=== PATIENT | female | born 1960 | race Caucasian/White ===

== ENCOUNTER 2023-12-20 17:00 | Inpatient (IN) | payer OTHER, SELFPAY ==
[2023-12-20] VITALS (9 sets, daily range): BP systolic 123–155; BP diastolic 46–83; BMI 17.8
[2023-12-20] MEDS: CORDARONE 518 MG IV (12:10)
[2023-12-20] MEDS: NSS 141 ML IV (12:51)
--- NOTE | 2023-12-20 13:35 | PTCARENOTE ---
Dr Loa, hospitalist, at pt bedside speaking to pt.
--- NOTE | 2023-12-20 14:09 | W.PN.CARDCBS ---
Today's Communication / Plan
-
LHC
anticipate ICD today or tomorrow AM
Impression / Plan
-
This is the Cardiology Consult update note.
Consult scanned into chart.
PCP: Jazmin Chan NP
CDY: Michael Cheney MD
63 y/o, chronic systolic HFrEF 25-30%, NICM likely attributed to chemotherapy for breast cancer, prolonged Q-T interval on EKG, HLD, COPD/emphysema, former tobacco abuse. Recently seen by cardiology and plan was for a diagnostic R/LHC for persistent
low EF. Bi-V ICD was discussed, but she preferred to wait at this time.
New onset dizziness, chest discomfort, sob at home. Laid on the floor and called EMS, found to be in VT w/rates 280, SBP 40s. Converted to SR after 150mg amiodarone x2 doses. Admitted to ICU on amiodarone gtt, mild transaminitis, remained in NSR
w/1st deg AVB. Repeat echo done this morning - preliminary results with LVEF 25%, moderate MR.
Transferred today for [facility] with likely ICD implant this admission.
Echo in 08/2023- severely reduced EF 25-30%, basal/mid inferoseptal AK, entire lateral, apex and inferior tariq are HK, mild MR
IMPRESSION:
VTach
Chronic systolic HFrEF, 25%
NICM r/t chemotherapy
Prolonged Q-T interval on EKG
HLD
Breast Cancer (lumpectomy, XRT/Chemo, 1990)
Hx Bilat mastectomy, bilat oopherectomy
COPD/Emphysema
Former Tobacco abuse
PLAN:
Pt with known cardiomyopathy and low EF on GDMT, refusing Bi-V ICD at last o/v on 12/16/23
Now with VTach, converted with amiodarone load and gtt
EF remains low on recent echo, 25%
LHC today to eval for CAD
If no CAD, plan for ICD +/- Bi-V later today or tomorrow
Continue IV amio for now and transition to PO after device implanted
Monitor electrolytes- both Potassium and Magnesium repleted today
LFTs in AM- AST 264, ALT 151, AP147 on arrival- hold atorvastatin 40/d for now
Continue metoprolol xl 25/d, entresto 24/ BID, aldactone 12.5/d
Continue spiriva, albuterol MN as needed for COPD
Followup for incision check at [facility] and with Dr. Cheney thereafter
Progress Note - Hosted Services Analyst
Subjective
Date of Service: December 20, 2023
Denies cp/palps/dizziness/dyspnea
on bedrest
Objective
Vital Signs and I&O:
Vital Signs
Temp Pulse Resp BP Pulse Ox
98.9 F 68 20 141/83 92
12/20/23 12:10 12/20/23 12:10 12/20/23 12:10 12/20/23 12:10 12/20/23 12:10
Vital Signs
Temp Pulse Resp BP Pulse Ox
98.9 F 68 20 141/83 92
12/20/23 12:10 12/20/23 12:10 12/20/23 12:10 12/20/23 12:10 12/20/23 12:10
Physical Exam
Physical Exam
AAOx3, MAEE 5/5
RRR S1 S2 no murmurs
CTA bilat, non labored
soft abd, + bs
bilat extremities w/palpable distal pulses, no edema
--- NOTE | 2023-12-20 14:49 | HPS.HSE ---
Family Physician
-
Family Physician: Jazmin Chan
Chief Complaint
-
Sustained symptomatic VT.
History of Present Illness
Patient is a 63 years old female with fairly recent diagnosis of nonischemic cardiomyopathy with severely reduced ejection fraction who was admitted to outside hospital with symptomatic ventricular tachycardia on December 19, 2023. At that time she
presented to the emergency department for evaluation of lightheadedness, chest discomfort and associated shortness of breath. She was not her normal state of health the day prior. She felt lightheaded to the point that she had to lower herself
down to the ground. She called EMS.
She noted to be in ventricular tachycardia en route to ED. She was started on amiodarone and spontaneously converted to sinus rhythm shortly after arrival to emergency room. She remained hemodynamically stable while in the emergency room. She was
continued on amiodarone drip and transferred to [facility] for further evaluation including diagnostic cath and AICD implantation.
Medical History
Past Medical History
Past Medical History: Reports Cancer (Precipitated with radiation and chemotherapy 30 years ago.) and COPD; Denies IDDM
Past Surgical History: Reports Other (Bilateral mastectomy with implants)
Social History
Tobacco: Former Smoker
Alcohol: None
Drug: None
Living: With Family
Family History
Family History: Not pertinent
Allergies / Home Medications
Allergies reflects when Allergies were last updated in [facility].
Home Medications with original date entered in [facility]
Allergy/Medication List:
Allergies
Allergy/AdvReac Type Severity Reaction Status Date / Time
levofloxacin Allergy nausea and Verified 12/20/23 12:12
vomiting
Home Medications
acetaminophen 500 mg tablet 1,000 mg PO Q6H PRN pain 12/20/23
albuterol sulfate 2.5 mg/3 mL (0.083 %) solution for nebulization 2.5 mg inhalation BIDPRN PRN sleeep 12/20/23
albuterol sulfate 90 mcg/actuation aerosol inhaler 2 puff inhalation DAILYPRN PRN SOB 12/20/23
alendronate 70 mg tablet (Fosamax) 70 mg PO QWEEK 12/20/23
aspirin 81 mg tablet,delayed release 81 mg PO DAILY 12/20/23
atorvastatin 40 mg tablet 40 mg PO QPM 12/20/23
biotin 5 mg capsule 5 mg PO DAILY 12/20/23
metoprolol succinate 25 mg tablet,extended release 24 hr 25 mg PO DAILY 12/20/23
sacubitril 24 mg-valsartan 26 mg tablet (Entresto) 1 tab PO BID 12/20/23
spironolactone 25 mg tablet 12.5 mg PO DAILY 12/20/23
tiotropium bromide 2.5 mcg/actuation mist for inhalation (Spiriva Respimat) 1 puff inhalation BIDPRN PRN SOB 12/20/23
Review of Systems
-
A 12 point ROS was completed and negative except as noted: Yes
Cardiac: Reports See HPI
Physical Exam
Vital Signs
Vital Signs
Temp Pulse Resp BP Pulse Ox
98.9 F 68 20 141/83 92
12/20/23 12:10 12/20/23 12:10 12/20/23 12:10 12/20/23 12:10 12/20/23 12:10
Physical Exam
General: Well Developed, Well Nourished and No Apparent Distress
HEENT: NormoCephalic, Moist mucous membranes and Atraumatic
Respiratory: Clear
Cardiac: S1/S2 and Regular Rhythm; No Murmur or Rub
GI: Soft, Non Tender, Non Distended and Normal Bowel Sounds; No Organomegaly
Rectal: Deferred by Provider
Musculoskeletal: No Clubbing, No Cyanosis and No Edema
Skin: No Rash
Neuro: Awake, Alert, Oriented, AO x 3 and Nonfocal/grossly intact
Psych: Calm
Data Reviewed
-
Old Records: Reviewed (Medical records from transferring facility)
Impression/Plan
-
IMPRESSION:
Sustained ventricular tachycardia, symptomatic upon admission
Nonischemic cardiomyopathy.
Abnormal LFTs suspected secondary to shock liver in the settings of ventricular tachycardia
Conditions prior to admission:
Nonischemic cardiomyopathy diagnosed March 2023.
COPD without exacerbation
Former tobacco smoker.
History of breast carcinoma status postchemotherapy/radiation 30 years ago.
Status post bilateral mastectomy with implants (BRCA gene positive)
PLAN:
Sustained symptomatic ventricular tachycardia.
Currently in sinus rhythm.
On amiodarone drip upon transfer.
Plan is for diagnostic catheterization to rule out ischemic component and AICD implantation.
Nonischemic cardiomyopathy.
Reported negative stress test April 2023.
Cardiac cath as noted above.
On GDMT with beta-cynthia, Entresto, spironolactone PARENT EDUCATOR.
Abnormal LFTs suspected secondary to shock liver with VTE reported from outside facility.
Follow CMP.
COPD without exacerbation.
Stable respiratory status with no evidence of bronchospasm.
Continue DuoNebs and Spiriva
Full code
DVT prophylaxis heparin sc
--- NOTE | 2023-12-20 15:20 | ITS.CL.CATH ---
Addendum entered and electronically signed by Josseline Acosta MD 12/29/23 17:38:
CORRECT DATE OF PROCEDURE: 12/20/2023
Original Note:
Consumer Loan Manager - Catheterization
Cardiac Catheterization
Procedure Report:
RIGHT AND LEFT HEART CATHETERIZATION
Date of Procedure: December 19, 2023
Procedures performed:
1: Coronary angiography
2: Left ventricular hemodynamic assessment
3: Right heart catheterization
Primary Care Physician: SYLVIA Morgan
Primary Accounting Professional: Dr. Michael Cheney
INDICATION: The patient is a 63-year-old woman with a past medical history of smoking and COPD and cardiomyopathy who presents with sustained ventricular tachycardia. She is referred for diagnostic right and left heart catheterization.
ACCESS: The patient was prepped and draped in usual sterile fashion. A 5 Liberian sheath was placed in the right radial artery using the Seldinger over the wire technique. A 6 Liberian sheath was then placed in the right common femoral vein using the
same technique.
HEMODYNAMIC FINDINGS (mmHg):
RA(a,v,m): 5, 3, 3
RV(s/d,EDP): 30/2, 3
PA(s/d/m): 32/11, 20
PCWP(a,v,m): 7, 9, 7
LV(s/d,EDP): 110/7, 12
Ao(s/d,m): 110/55, 76
Oxygen Saturations (mg/dl):
PA: 72% on 2 L oxygen by nasal cannula
LV: 95% on 2 L of oxygen by nasal cannula on room air
Cardiac Output/Index (l/min / l/min/m2):
Estimated Malachi Method: 3.8 / 2.6
VALVE HEMODYNAMICS:
No significant aortic or mitral valve stenosis.
ANGIOGRAPHIC FINDINGS:
Single-plane Left Ventriculography in CAMPBELL Projection: Not done.
Coronary Angiography:
Dominance: Right
Left Main: Normal
Left Anterior Descending: The left anterior descending artery is a medium caliber vessel that gives rise to a small high first diagonal branch and a medium caliber second diagonal branch. These vessels are widely patent with mild luminal
irregularities. The LAD itself is a medium caliber vessel that has diffuse 20 to 30% mid disease. The apical vessel wraps around to feed a significant portion of the distal inferior wall. All vessels have normal flow.
Left Circumflex: The left circumflex is a medium caliber nondominant vessel that gives rise to 2 major obtuse marginal branches. These vessels are widely patent with normal flow and no focal disease.
Right Coronary: The right coronary artery is a medium caliber dominant vessel that has moderate diffuse calcification throughout the AV groove. There is smooth 20% disease at multiple levels in the mid RCA with normal distal flow and a relatively
small caliber posterior descending artery and 2 larger posterior left ventricular branches.
Fluoroscopy Time (min): 3.1
Radiation Dose (mGy): 97
DAP (Gy.cm2): 9.3
Closure device: None. A TR band was applied for hemostasis at the right wrist. The femoral vein groin sheath will be pulled with manual pressure for hemostasis.
Complications: None.
ASSESSMENT:
1: Nonobstructive coronary artery disease. This is a nonischemic cardiomyopathy.
2: Normal left ventricular filling pressures with normal pulmonary pressures.
CONCLUSIONS and RECOMMENDATIONS:
1: Medical therapy for a nonischemic cardiomyopathy.
2: EP evaluation for likely ICD placement given presentation with ventricular tachycardia.
Josseline Acosta M.D.
Copy to: SYLVIA Morgan
--- NOTE | 2023-12-20 17:13 | ITS.CL.ICD ---
[employer] Wiring Technician - ICD
Implantable Cardioverter Defibrillator
Procedure Report:
ICD IMPLANTATION REPORT
Date of Procedure: December 20, 2023
Primary Care Physician: SYLVIA Morgan
Primary Innersole Maker: Dr. Michael Cheney
PROCEDURES:
ICD Implant
INDICATION FOR PROCEDURE:
Sustained ventricular tachycardia, hemodynamically unstable, requiring IV amiodarone for termination. Known history of heart failure with reduced ejection fraction. She underwent coronary angiography today which demonstrated no significant
obstructive coronary artery disease. Right heart catheterization demonstrated normal to slightly low left ventricular filling pressures and normal pulmonary artery pressures.
There is no reversible cause for the sustained ventricular tachycardia.
Life expectancy > 1 year.
Shared decision making involving the patient and her referring piece dyeing machine tender is utilized and decided to move forward with ICD implantation.
ICD implantation as a secondary prevention device is indicated.
QRS duration is not markedly prolonged and there is no indication for cardiac resynchronization pacing.
Lidocaine with epi was used for local anesthesia. Central venous access was obtained via axillary venipuncture. An incision was made along the left chest and a pre-pectoral pocket was formed. Using a Seldinger technique and peel-away sheaths, the
pacing leads were placed under fluoroscopic guidance.
Once testing (see below) showed adequate and stable function, the leads were secured using the suture sleeves. The pocket was liberally irrigated with antibiotic solution. The leads were connected to the generator header and the leads and
generator were placed within the pocket. Fluoroscopy confirmed stable lead position. The pocket was closed in the typical fashion.
FLUOROSCOPY:
Fluoroscopy was used to guide lead placement.
IMPLANTS:
ICD Rock CDD RA 500Q, serial #[id number], Left Pectoral
RA Rock , 2088 TC, serial number [id number]
RV Rock LDA 210Q serial number [id number], RV apical septum
DEVICE TESTING:
Sensing: RA 1.8 mV, RV 11.7 mV
Capture: RA 0.75 V@0.5ms, RV 0.75 V@0.5ms
Ohms: RA 560 , RV 500
Induction: Shock on T
FINAL PROGRAMMING:
Chris Pacing: DDD 60 - 130 ppm
Tachy parameters:
VF: 181 bpm, ATP X 1, Shock
VT-2: 160 bpm, ATP X 2, Shock
VT1: 140 bpm, Monitor
COMPLICATIONS:
None
CONCLUSIONS:
Successful implant of dual chamber ICD system.
Normal function of ICD and leads at implant testing.
RECOMMENDATIONS:
Post op care (tele, CXR, IV abx).
Initiate oral amiodarone load and discontinue IV amiodarone
In-Office wound check in 5-7 days.
Copy to:
SYLVIA Morgan
Dr. Michael Cheney
[2023-12-20] MEDS: PACERONE 400 MG PO ×2 (18:23→23:50)
[2023-12-20] MEDS: NSS 1000 IV (18:24)
--- NOTE | 2023-12-20 19:08 | PTCARENOTE ---
Received patient from EP lab at 1715 after right and left heart cath and ICD implant left upper chest. SR on the monitor with a BBB. Pressure dressing dry and intact left upper chest. Radial band in place right wrist with a strong radial pulse and
no signs of hematoma or bleeding. Dressing right groin is dry and intact. IV amiodarone infusing via left midline and was discontinued as ordered, patient given ordered PO dose. Post EKG done, patient's sister in visiting at the bedside, call miguel
within reach.
[2023-12-20] MEDS: TYLENOL 650 MG PO (19:16)
[2023-12-20] MEDS: ENTRESTO 24 MG/26 MG 1 TAB PO (19:16)
[2023-12-20] MEDS: ANCEF 5 IV (22:55)
--- NOTE | 2023-12-21 01:44 | PTCARENOTE ---
Assumed care of patient at change of shift. Patient AAOx3, sating 96-97% on 2L, and SR w/ BBB on tele. HR in the 60-70's at rest, BPs stable. TR removed at approximately 20:30, dry dressing applied. Patient ecchymotic above radial site, soft upon
palpation. Left anterior chest dressing intact, pressure dressing present. Left arm remains in immobilizer. Patient aware of activity restrictions in regards to right radial site/ LUE. Right groin dressing C/D/I. At approx 20:00 patient c/o chest
'heaviness'/ 'tightness' located midsternal. VSS, CXR obtained. Dr. Cavlert made aware. EKG obtained, findings similar to prior EKG. Symptoms resolved. No new orders obtained from MD. Patient requires standby assist, denies dizziness w/ ambulation.
Patient aware of POC, call miguel in reach.
[2023-12-21 03:18] VITALS: BP 131/70
[2023-12-21] MEDS: TYLENOL 650 MG PO ×2 (03:19→21:14)
[2023-12-21 04:01] LABS: % Basophils 0.6 % (0-2); % Immature Granulocytes 0.3 % (0-0.5); % Lymphocytes 14.4 % (20.5-51.1); % Monocytes 6.2 % (1.7-9.3); % Neutrophils 76.5 % (42.2-75.2); Absolute Eosinophils 0.1 10^3/uL (0-0.7); Absolute Monocytes 0.4 10^3/uL (0.1-0.6); Absolute Neutrophils 5.3 10^3/uL (1.4-6.5); Hematocrit 33.8 % (37.0-47.0); Hemoglobin 11.5 g/dL (12.0-16.0); Mean Corpuscular Hgb 30.7 pg (27.0-31.0); Mean Corpuscular Volume 90.1 fL (81.0-99.0); Mean Platelet Volume 9.7 fL (7.4-10.4); Nucleated Red Blood Cells % 0 %; Platelet Count 154 10^3/uL (130-400); Red Blood Cell Count 3.75 10^6/uL (4.20-5.40); Red Cell Dist. Width 12.9 % (11.5-14.5); White Blood Cell Count 6.9 10^3/uL (4.8-10.8)
[2023-12-21 04:20] LABS: ALT (SGPT) 244 U/L (0-35); AST (SGOT) 256 U/L (14-36); Albumin 3.2 g/dl (3.5-5.0); Alkaline Phosphatase 167 U/L (38-126); Blood Urea Nitrogen 7 mg/dl (7-17); Calcium 7.7 mg/dl (8.4-10.2); Carbon Dioxide 22 mmol/L (22-30); Chloride 107 mmol/L (98-107); Estimated Creatinine Clearance 70 ml/min; Glucose 119 mg/dl (70-99); Magnesium 2.3 mg/dl (1.6-2.3); Potassium 4.5 mmol/L (3.5-5.1); Sodium 132 mmol/L (135-145); Total Bilirubin 1.2 mg/dl (0.2-1.3); Total Protein 5.5 g/dl (6.3-8.2); eGFR > 60.00
[2023-12-21] MEDS: ANCEF 5 IV (05:51)
[2023-12-21 06:00] VITALS: BMI 19.0
[2023-12-21 07:12] VITALS: BP 136/76
--- NOTE | 2023-12-21 10:17 | W.PN.CARDCBS ---
Today's Communication / Plan
-
Cont amiodarone 200 mg BID for now and recheck LFTs in AM, if better cont amio, but if worse stop amio
Add Farxiga 10 mg daily and ask CM for help with checking cost
Impression / Plan
-
PCP: Jazmin Chan NP
CDY: Michael Cheney MD
IMPRESSION:
Transfer from [facility] to for cath and ICD 12/20/23
Sustained self-terminating VT
Nonobstructive CAD by cath 12/20/23
s/p [employer] DC ICD 12/20/23
Chronic systolic HFrEF, 25%
NICM r/t chemotherapy
Prolonged Q-T interval on EKG
HLD
Breast Cancer (lumpectomy, XRT/Chemo, 1990)
Hx Bilat mastectomy, B/L oophorectomy
COPD/Emphysema
Former Tobacco abuse
Elevated LFTs
Echo 08/2023: severely reduced EF 25-30%, basal/mid inferoseptal AK, entire lateral, apex and inferior tariq are hypokinetic, mild MR
PLAN:
-Patient was transferred form [facility] to 12/20/23 for cardiac cath after being admitted to [facility] with sustained VT and chest pain/SOB. Patient had cath as noted above.
-Patient is s/p [employer] DC ICD 12/20/23 as well. Device checked by rep 12/21/23 and normal function.
-AST 264 and ALT 151 at [facility] 12/20/23 and at on 12/21/23 AST 256 and ALT 244. Initially loaded with amiodarone gtt at [facility] and upon transfer to she was started on amiodarone 400 mg TID. Will decrease amiodarone to 200 mg BID starting 12/21/23 and
recheck LFTs on 12/22/23. If LFTs trending up on 12/22/23 then stop amiodarone, but if LFTs stable then continue amiodarone
-GDMT includes Toprol XL 25 mg daily, Entresto 24/26 mg BID and Aldactone 12.5 mg daily. Will try adding Farxiga 10 mg daily and ask CM to check cost.
HPI: 63 y/o, chronic systolic HFrEF 25-30%, NICM likely attributed to chemotherapy for breast cancer, prolonged Q-T interval on EKG, HLD, COPD/emphysema, former tobacco abuse. Recently seen by cardiology and plan was for a diagnostic R/LHC for
persistent low EF. Bi-V ICD was discussed, but she preferred to wait at this time.
New onset dizziness, chest discomfort, sob at home. Laid on the floor and called EMS, found to be in VT w/rates 280, SBP 40s. Converted to SR after 150mg amiodarone x2 doses. Admitted to ICU on amiodarone gtt, mild transaminitis, remained in NSR
w/1st deg AVB. Repeat echo done this morning - preliminary results with LVEF 25%, moderate MR.
Transferred today for [facility] with likely ICD implant this admission.
Progress Note - Wheel Press Clerk
Subjective
Date of Service: December 21, 2023
Overall feeling well
Objective
Labs:
12/21/23 03:37
12/21/23 03:37
Labs
Hgb 11.5 g/dL (12.0-16.0) L 12/21/23 03:37
Hct 33.8 % (37.0-47.0) L 12/21/23 03:37
Plt Count 154 10^3/uL (130-400) 12/21/23 03:37
Sodium 132 mmol/L (135-145) L 12/21/23 03:37
Potassium 4.5 mmol/L (3.5-5.1) 12/21/23 03:37
BUN 7 mg/dl (7-17) 12/21/23 03:37
Creatinine 0.5 mg/dL (0.6-1.0) L 12/21/23 03:37
Glucose 119 mg/dl (70-99) H 12/21/23 03:37
Vital Signs and I&O:
Vital Signs
Temp Pulse Resp BP Pulse Ox
98.2 F 75 16 136/76 97
12/21/23 07:11 12/21/23 07:12 12/21/23 07:11 12/21/23 07:12 12/21/23 07:12
Vital Signs
Temp Pulse Resp BP Pulse Ox
98.2 F 75 16 136/76 97
12/21/23 07:11 12/21/23 07:12 12/21/23 07:11 12/21/23 07:12 12/21/23 07:12
Intake & Output
12/19/23 12/20/23 12/21/23 12/22/23
06:59 06:59 06:59 06:59
Intake Total 453 / 453
Balance 453 / 453
Physical Exam
Physical Exam
GEN: NAD, AAOx3
HEENT: EOMI, MMM
LUNGS: CTA B/L
CV: Reg
ABD: soft, BS+
EXT: No edema B/L
NEURO: Gross non-focal
SKIN: No rash
[2023-12-21] MEDS: ENTRESTO 24 MG/26 MG 1 TAB PO ×2 (10:27→21:13)
[2023-12-21] MEDS: ASPIR LOW (ENTERIC COATED) 81 MG PO (10:27)
[2023-12-21] MEDS: TOPROL XL 25 MG PO (10:27)
[2023-12-21] MEDS: TYLENOL PO (10:27)
[2023-12-21] MEDS: ALDACTONE 12.5 MG PO (10:28)
[2023-12-21] MEDS: PACERONE 400 MG PO ×3 (10:28→21:13)
--- NOTE | 2023-12-21 11:10 | CM ---
Chart reviewed. Patient is independent of ADLS, lives with her mother and grandson in a 2 STH, 1 UDAY, 0 DME. Patient currently with no discharge needs. CM to follow
[2023-12-21 11:28] VITALS: BP 150/93
--- NOTE | 2023-12-21 15:11 | CM ---
Pricing on Farxiga through patient's [facility] is $0 copay.
--- NOTE | 2023-12-21 15:38 | W.PN.HOSP.TC ---
Today's Communication/Plan
-
Amiodarone
Follow LFT.
PT evaluation
Assessment / Plan
Assessment / Plan
IMPRESSION:
Sustained ventricular tachycardia, symptomatic upon admission
Nonischemic cardiomyopathy.
Abnormal LFTs suspected secondary to shock liver in the settings of ventricular tachycardia
Conditions prior to admission:
Nonischemic cardiomyopathy diagnosed March 2023.
COPD without exacerbation
Former tobacco smoker.
History of breast carcinoma status postchemotherapy/radiation 30 years ago.
Status post bilateral mastectomy with implants (BRCA gene positive)
PLAN:
Sustained symptomatic ventricular tachycardia.
Currently in sinus rhythm.
On amiodarone drip upon transfer.
[facility] on 12/20 with nonobstructive CAD confirms nonischemic cardiomyopathy.
Status post AICD placement on 12/20.
Transition to oral amiodarone with dose adjustment. Follow LFTs.
Nonischemic cardiomyopathy.
Reported negative stress test April 2023.
Cardiac cath as noted above.
On GDMT with beta-cynthia, Entresto, spironolactone PATIENT LIAISON.
Abnormal LFTs suspected secondary to shock liver with VTE reported from outside facility.
Follow CMP.
COPD without exacerbation.
Stable respiratory status with no evidence of bronchospasm.
Continue DuoNebs and Spiriva
Full code
DVT prophylaxis heparin sc
Anticipated Discharge: 24 - 48 hours
Subjective/Interval History
-
Date of Service: December 21, 2023
Objective Data
-
Labs:
Laboratory Results
12/21/23
03:37
WBC 6.9
Hgb 11.5 L
Hct 33.8 L
Plt Count 154
Sodium 132 L
Potassium 4.5
Chloride 107
Carbon Dioxide 22
BUN 7
Creatinine 0.5 L
Glucose 119 H
Calcium 7.7 L
Total Bilirubin 1.2
AST 256 H
ALT 244 H
Alkaline Phosphatase 167 H
Vital Signs:
Vital Signs
Temp Pulse Resp BP Pulse Ox
97.7 F 71 16 150/93 92
12/21/23 11:26 12/21/23 11:28 12/21/23 11:26 12/21/23 11:28 12/21/23 11:26
I&O
12/20/23 12/21/23 12/22/23
06:59 06:59 06:59
Intake Total 453 / 453
Balance 453 / 453
Physical Exam
-
General: Well Developed and No Apparent Distress
HEENT: Normocephalic, Atraumatic and Moist Mucous Membranes
Respiratory: Clear to Auscultation
Cardiac: Regular Rhythm and S1/S2; Negative Murmur, Rub or Gallop
GI: Soft, Nontender, Nondistended and Normal Bowel Sounds; Negative Organomegaly
Rectal: Deferred by Provider
Musculoskeletal: No Clubbing, No Cyanosis and No Edema
Skin: Negative Rash
Neuro: Awake, Alert, Oriented, AO x 3 and Nonfocal/Grossly Intact
[2023-12-21 15:48] VITALS: BP 163/92
--- NOTE | 2023-12-21 17:59 | PTCARENOTE ---
Out of bed to chair, ambulating to bathroom independently. Left ICD site intact with pressure dressing and left arm immobilizer in place.
[2023-12-21 20:25] VITALS: BP 103/58
[2023-12-21 22:56] VITALS: BP 107/62
--- NOTE | 2023-12-22 00:59 | PTCARENOTE ---
Received patient at 2300 resting in bed, SR on the monitor, call miguel within reach.
[2023-12-22 04:19] VITALS: BP 160/81
[2023-12-22 06:00] VITALS: BMI 18.7
[2023-12-22 06:37] LABS: ALT (SGPT) 144 U/L (0-35); AST (SGOT) 102 U/L (14-36); Albumin 3.4 g/dl (3.5-5.0); Alkaline Phosphatase 145 U/L (38-126); Blood Urea Nitrogen 8 mg/dl (7-17); Calcium 8.1 mg/dl (8.4-10.2); Carbon Dioxide 27 mmol/L (22-30); Chloride 106 mmol/L (98-107); Estimated Creatinine Clearance 75 ml/min; Glucose 94 mg/dl (70-99); Potassium 4.4 mmol/L (3.5-5.1); Sodium 135 mmol/L (135-145); Total Protein 5.7 g/dl (6.3-8.2); eGFR > 60.00
[2023-12-22 08:02] VITALS: BP 153/92
[2023-12-22] MEDS: TOPROL XL 25 MG PO (09:46)
[2023-12-22] MEDS: PACERONE 400 MG PO (09:46)
[2023-12-22] MEDS: ASPIR LOW (ENTERIC COATED) 81 MG PO (09:46)
[2023-12-22] MEDS: FARXIGA 10 MG PO (09:46)
[2023-12-22] MEDS: ENTRESTO 24 MG/26 MG 1 TAB PO (09:46)
[2023-12-22] MEDS: ALDACTONE 12.5 MG PO (09:46)
--- NOTE | 2023-12-22 10:59 | W.PN.CARDCBS ---
Addendum entered and electronically signed by Victor Hugo Jhaveri MD 12/22/23 13:13:
I saw and examined the patient.
The Purifying Plant Operator's note was reviewed and I agree with the note.
Comment:
GEN: No distress, awake, Ox3
HEENT: supple, anicteric, mmm
LUNGS: CTA, no wheezes/rales
CV: Reg, S1/S2, 1/6 syst LSB, no gallop
ABD: soft, BS+, NT/ND
EXT: No edema
NEURO: Gross non-focal
SKIN: gen site dressing intact
Plan:
Stable for discharge today. Continue amiodarone 200 mg p.o. twice daily. Liver function testing continues to improve.
Continue Toprol, Entresto, and spironolactone.
Farxinc was added.
Repeat CMP in 1 to 2 weeks.
Original Note:
Today's Communication / Plan
-
D/C to home today
Cont amiodarone 200 mg BID until seen in the office
No driving until seen in the office
Incision check at [facility] office and then returning to her primary disability insurance hearing officer at [facility]
New to [facility]. Toprol XL, Entresto and spironolactone continued
Impression / Plan
-
PCP: Jazmin Chan NP
CDY: Michael Cheney MD
IMPRESSION:
Transfer from [facility] to for cath and ICD 12/20/23
Sustained self-terminating VT
Nonobstructive CAD by cath 12/20/23
s/p [employer] DC ICD 12/20/23
Chronic systolic HFrEF, 25%
NICM r/t chemotherapy
HLD
Breast Cancer (lumpectomy, XRT/Chemo, 1990)
Hx Bilat mastectomy, B/L oophorectomy
COPD/Emphysema
Former Tobacco abuse
Elevated LFTs
New start to chronic amiodarone therapy
Echo 08/2023: severely reduced EF 25-30%, basal/mid inferoseptal AK, entire lateral, apex and inferior tariq are hypokinetic, mild MR
PLAN:
-Pressure dressing removed and underlying Aquacel is in place without drainage, there is some soft tissue swelling and ecchymosis, but no evidence of hematoma or drainage. Limb restrictions reviewed with patient, she is s/p right radial access cath
and left sided ICD. Patient can wear immobilizer at bedtime, but advised her to move arm during the day and not put elbow above shoulder.
-No driving until seen in the office. Patient with sustained VT at [facility] prior to transferring to . She now has an ICD in place and has been loaded with amiodarone.
-AST and ALT are trending down 12/22/23. Initially loaded with amiodarone gtt at [facility] and upon transfer to she was started on amiodarone 400 mg TID. Amiodarone decreased to 200 mg BID starting 12/21/23, will continue until seen in the [facility] office
-QTc 495 ms on 12/21/23
-GDMT includes Toprol XL 25 mg daily, Entresto 24/26 mg BID and Aldactone 12.5 mg daily. Farxiga 10 mg daily added 12/22/23 and appreciate help of CM in determining the cost which is $0/month.
-D/C to home 12/22/23, follow up arranged
HPI: 63 y/o, chronic systolic HFrEF 25-30%, NICM likely attributed to chemotherapy for breast cancer, prolonged Q-T interval on EKG, HLD, COPD/emphysema, former tobacco abuse. Recently seen by cardiology and plan was for a diagnostic R/LHC for
persistent low EF. Bi-V ICD was discussed, but she preferred to wait at this time.
New onset dizziness, chest discomfort, sob at home. Laid on the floor and called EMS, found to be in VT w/rates 280, SBP 40s. Converted to SR after 150mg amiodarone x2 doses. Admitted to ICU on amiodarone gtt, mild transaminitis, remained in NSR
w/1st deg AVB. Repeat echo done this morning - preliminary results with LVEF 25%, moderate MR.
Transferred today for [facility] with likely ICD implant this admission. Patient was transferred form [facility] to 12/20/23 for cardiac cath after being admitted to [facility] with sustained VT and chest pain/SOB. Patient had cath as noted above.
Progress Note - Supervisor Hanging And Trimming
Subjective
Date of Service: December 22, 2023
Feels well, no palpitations
Objective
Labs:
12/21/23 03:37
12/22/23 04:28
Labs
Hgb 11.5 g/dL (12.0-16.0) L 12/21/23 03:37
Hct 33.8 % (37.0-47.0) L 12/21/23 03:37
Plt Count 154 10^3/uL (130-400) 12/21/23 03:37
Sodium 135 mmol/L (135-145) 12/22/23 04:28
Potassium 4.4 mmol/L (3.5-5.1) 12/22/23 04:28
BUN 8 mg/dl (7-17) 12/22/23 04:28
Creatinine 0.6 mg/dL (0.6-1.0) 12/22/23 04:28
Glucose 94 mg/dl (70-99) 12/22/23 04:28
Vital Signs and I&O:
Vital Signs
Temp Pulse Resp BP Pulse Ox
98.4 F 76 20 153/92 93
12/22/23 07:58 12/22/23 08:00 12/22/23 07:58 12/22/23 08:02 12/22/23 07:58
Vital Signs
Temp Pulse Resp BP Pulse Ox
98.4 F 76 20 153/92 93
12/22/23 07:58 12/22/23 08:00 12/22/23 07:58 12/22/23 08:02 12/22/23 07:58
Intake & Output
12/20/23 12/21/23 12/22/23 12/23/23
06:59 06:59 06:59 06:59
Intake Total 453 / 453 360 / 360
Balance 453 / 453 360 / 360
Physical Exam
Physical Exam
GEN: NAD, AAOx3
HEENT: EOMI, MMM
LUNGS: CTA B/L
CV: Left ACW implant site bulky dressing removed and underlying Aquacel in place without evidence of drainage, mild soft tissue swelling without hematoma. Diffusely tender. Reg rate
ABD: soft, BS+
EXT: No edema B/L
NEURO: Gross non-focal
SKIN: No rash
--- NOTE | 2023-12-22 11:13 | CM ---
Chart reviewed. Patient is independent of ADLS, lives with her mother and grandson in a 2 STH, 1 UDAY, 0 DME. Patient currently with no discharge needs. Plan is for the patient to return home. CM to follow
--- NOTE | 2023-12-22 11:30 | W.DS.TRANS ---
DC Summary - Social Work Instructor
-
Discharge Instructions:
Discharge Diagnosis/Procedures s/p cardiac catheterization, s/p ICD implant
IMPRESSION:
Sustained ventricular tachycardia, symptomatic
upon admission
Nonischemic cardiomyopathy.
Abnormal LFTs suspected secondary to shock liver
in the settings of ventricular tachycardia
Conditions prior to admission:
Nonischemic cardiomyopathy diagnosed March 2023.
COPD without exacerbation
Former tobacco smoker.
History of breast carcinoma status
postchemotherapy/radiation 30 years ago.
Status post bilateral mastectomy with implants (
BRCA gene positive)
Diet Low Sodium,Low Fat
Activity Other activity
Driving Restrictions Not until seen by your Dr
Bathing Restrictions OK to Shower
Instructions:
Stand-Alone Forms: DC Instructions- Cath/EP Lab
DC Inst - Implanted Device
Changes to Home Medications: Yes
Discharge Medications:
DC Medications w/original date entered in [employer]
albuterol sulfate 2.5 mg/3 mL (0.083 %) solution for nebulization 2.5 mg inhalation BIDPRN PRN sleep 12/20/23
albuterol sulfate 90 mcg/actuation aerosol inhaler 2 puff inhalation DAILYPRN PRN SOB 12/20/23
alendronate 70 mg tablet (Fosamax) 70 mg PO QWEEK 12/20/23
aspirin 81 mg tablet,delayed release 81 mg PO DAILY 12/20/23
atorvastatin 40 mg tablet 40 mg PO QPM 12/20/23
biotin 5 mg capsule 5 mg PO DAILY 12/20/23
metoprolol succinate 25 mg tablet,extended release 24 hr 25 mg PO DAILY 12/20/23
sacubitril 24 mg-valsartan 26 mg tablet (Entresto) 1 tab PO BID 12/20/23
spironolactone 25 mg tablet 12.5 mg PO DAILY 12/20/23
tiotropium bromide 2.5 mcg/actuation mist for inhalation (Spiriva Respimat) 1 puff inhalation BIDPRN PRN SOB 12/20/23
dapagliflozin propanediol 10 mg tablet (Farxiga) 10 mg PO DAILY Heart disease/condition #30 tabs 12/21/23
amiodarone 200 mg tablet 200 mg PO BID #60 tabs 12/22/23
Home Medication Changes
Amiodarone and Farxiga added.
Pending Results: No
== END 2023-12-22 12:49 | disposition home or self-care (01) | DRG 275 ==
LOC: IVU 17:00
PROVIDERS: Internal Medicine Cardiovascular Disease; Internal Medicine Interventional Cardiology; ADMITTING PHYSICIAN Internal Medicine; FAMILY PHYSICIAN Nurse Practitioner
PROC: 4A023N8 Measurement of Cardiac Sampling and Pressure, Bilateral, Percutaneous Approach (ICD-10-PCS; 2023-12-19)
PROC: B2111ZZ Fluoroscopy of Multiple Coronary Arteries using Low Osmolar Contrast (ICD-10-PCS; 2023-12-19)
PROC: 02HK3KZ Insertion of Defibrillator Lead into Right Ventricle, Percutaneous Approach (ICD-10-PCS; 2023-12-20)
PROC: 02H63KZ Insertion of Defibrillator Lead into Right Atrium, Percutaneous Approach (ICD-10-PCS; 2023-12-20)
PROC: 0JH608Z Insertion of Defibrillator Generator into Chest Subcutaneous Tissue and Fascia, Open Approach (ICD-10-PCS; 2023-12-20)
DX: I47.20 Ventricular tachycardia, unspecified (principal); K72.00 Acute and subacute hepatic failure without coma; I42.8 Other cardiomyopathies; I50.22 Chronic systolic (congestive) heart failure; J44.9 Chronic obstructive pulmonary disease, unspecified; I25.10 Atherosclerotic heart disease of native coronary artery without angina pectoris; J43.9 Emphysema, unspecified; Z87.891 Personal history of nicotine dependence; Z79.82 Long term (current) use of aspirin; Z85.3 Personal history of malignant neoplasm of breast; Z92.21 Personal history of antineoplastic chemotherapy
CPT/HCPCS: 33249; 71045; 80053; 83735; 85025; 93005; 93460; C1721; C1892; C1894; C1895; C1898; Q9967